=== PATIENT | female | born 1960 | race Caucasian/White ===

== ENCOUNTER 2016-12-22 08:00 | Outpatient (CLI) | payer MEDICAID, OTHER | END 2016-12-22 23:59 | DX: E03.9 Hypothyroidism, unspecified (principal) ==

== ENCOUNTER 2017-10-23 10:02 | Outpatient (CLI) | payer OTHER ==
[2017-10-23 17:46] LABS: BASOPHILS % (AUTO) 0.8 %; EOSINOPHILS # (AUTO) 0.2 10^3/uL (0.0-0.7); EOSINOPHILS % (AUTO) 4.1 %; HGB - HEMOGLOBIN 13.8 g/dL (12.0-16.0); LYMPHOCYTES # (AUTO) 1.4 10^3/uL (1.5-3.5); LYMPHOCYTES % (AUTO) 26.6 %; MEAN CORPUSCULAR HEMOGLOBIN 29.2 pg (27.0-31.0); MEAN CORPUSCULAR HGB CONC 32.5 g/dL (32.0-36.0); MEAN CORPUSCULAR VOLUME 89.9 fL (81.0-99.0); MEAN PLATELET VOLUME 8.8 fL (7.9-10.8); MONOCYTES # (AUTO) 0.3 10^3/uL (0.0-1.0); MONOCYTES % (AUTO) 6.1 %; NEUTROPHILS # (AUTO) 3.3 10^3/uL (1.5-6.6); NEUTROPHILS % (AUTO) 62.4 %; PLT - PLATELET COUNT 293 10^3/uL (130-450); RED BLOOD COUNT 4.74 10^6/uL (4.20-5.40); RED CELL DISTRIBUTION WIDTH 13.5 % (12.0-15.0); WHITE BLOOD COUNT 5.3 x10^3/uL (4.8-10.8)
[2017-10-23 18:17] LABS: ALBUMIN 4.2 g/dL (3.2-5.5); ALBUMIN/GLOBULIN RATIO 1.3 (1.0-2.2); ALKALINE PHOSPHATASE 57 IU/L (42-121); ALT ALANINE AMINOTRANSFERASE 24 IU/L (10-60); AST ASPARTATE AMINOTRANSFERASE 21 IU/L (10-42); BILIRUBIN,TOTAL 0.6 mg/dL (0.2-1.0); BUN - BLOOD UREA NITROGEN 14 mg/dL (6-20); CALCIUM 9.2 mg/dL (8.5-10.3); CARBON DIOXIDE - CO2 27 mmol/L (21-32); CHLORIDE 103 mmol/L (101-111); CREATININE 0.8 mg/dL (0.4-1.0); GFR - MDRD 75 (>89); GLUCOSE 121 mg/dL (70-100); SODIUM 138 mmol/L (135-145); TOTAL PROTEIN 7.4 g/dL (6.7-8.2)
== END 2017-10-23 10:03 | disposition home or self-care (01) ==
LOC: LAB.F 10:02
PROVIDERS: ATTEND Nurse Practitioner Family
DX: Z85.858 Personal history of malignant neoplasm of other endocrine glands (principal); E03.9 Hypothyroidism, unspecified
CPT/HCPCS: 36415; 80053; 84443; 85025

== ENCOUNTER 2017-10-29 07:11 | Outpatient (CLI) | payer OTHER ==
[2017-10-29] MEDS ORDERED: IOPAMIDOL-300 100 ML VIAL ONE (07:23)
[2017-10-29] MEDS ORDERED: IOPAMIDOL-300 100 ML VIAL IVP ONE (08:24)
[2017-10-29] MEDS ORDERED: ONDANSETRON ODT 4 MG TABLET ONE (11:42)
--- NOTE | 2017-10-29 11:43 | CT Report ---
EXAM: CT MAXILLOFACIAL WITH CONTRAST EXAM DATE: 10/29/2017 07:47 AM. CLINICAL HISTORY: Facial mass. COMPARISONS: Soft tissue neck CT with IV contrast 09/27/2014. TECHNIQUE: Thin-section axial images were acquired of the face after administration of intravenous co ntrast. Post-processing: Coronal and sagittal reformats. Other: 80 mL Isovue 300. IV contrast: Iodina anastasia. In accordance with CT protocol optimization, one or more of the following dose reduction techniques w ere utilized for this exam: automated exposure control, adjustment of mA and/or KV based on patient s ize, or use of iterative reconstructive technique. FINDINGS: A marker was placed on the skin of the right face corresponding to the location of the patient's symp toms. Immediately adjacent to the marker is a superficial subcutaneous rounded circumscribed nodule j ust under the skin. This nodule has a calcified center. No adjacent inflammatory or infiltrative thompson ges in the subcutaneous fat of the right face. This nodule now measures 15 x 13 mm transverse. Very s imilar findings were present previously but the nodule is now larger, previously measuring 10 x 12 mm transverse. Mild interval growth with otherwise stable overall morphology suggests a slowly growing benign or nonaggressive process. Again seen are findings of previous right neck dissection and total laryngectomy. Stable masslike fat density structure in the right neck as previously reported in detail. No other evidence for new or enlarging soft tissue mass or regional adenopathy. Stable atrophic verma es of the major salivary glands. No acute sinus or mastoid disease. Stable appearing orbits and intracranial structures. IMPRESSION: 1. Again seen is a superficial circumscribed centrally calcified subcutaneous nodule in the region of the right lateral cheek corresponding to the location of the skin marker. This is consistent with a benign or nonaggressive slowly growing process that was present previously. 2. No other evidence for new or acute abnormality of the soft tissues in this region. Stable surgical changes in the neck as described. [facility] Referring Provider Line: [phone] SITE ID: [id number]
== END 2017-10-29 07:12 | disposition home or self-care (01) ==
LOC: DI 07:11
PROVIDERS: ATTEND Nurse Practitioner Family
DX: R22.0 Localized swelling, mass and lump, head (principal)
CPT/HCPCS: 70487; Q0162; Q9967

== ENCOUNTER 2018-03-22 15:48 | Outpatient (CLI) | payer OTHER ==
--- NOTE | 2018-03-23 08:10 | XRAY Report ---
Procedure Date: 03/22/2018 Accession Number: [id number] / [id number] Procedure: XRS - Lumbar Spine 2 View CPT Code: FULL RESULT: EXAM: Lumbar Spine 2 View DATE: 03/22/2018 4:05 PM CLINICAL HISTORY: SCIATICA, ACUTE, LUMBAR SPINAL STENOSIS COMPARISON: MRI 07/25/2013 TECHNIQUE: 3 views. FINDINGS: Alignment: Normal. No spondylolisthesis or scoliosis. Bones: Five [id number] lumbar vertebral bodies are present. No fractures or bone lesions. Disks: Moderate degenerative disc disease. Facets: Moderate facet arthropathy. Sacroiliac Joints: Unremarkable. Soft Tissues: Normal bowel gas pattern. Calcified gallstones in the right upper quadrant. IMPRESSION: Moderate degenerative changes. Incidental cholelithiasis. [facility]
== END 2018-03-22 15:49 | disposition home or self-care (01) ==
LOC: DI.S 15:48
PROVIDERS: ATTEND Nurse Practitioner Family
DX: M47.896 Other spondylosis, lumbar region (principal); M51.36 Other intervertebral disc degeneration, lumbar region
CPT/HCPCS: 72100

== ENCOUNTER 2018-04-24 16:27 | Outpatient (CLI) | payer OTHER ==
--- NOTE | 2018-04-26 16:45 | MRI Report ---
Procedure Date: 04/24/2018 Accession Number: [id number] / [id number] Procedure: MRI - Lumbar Spine W/O CPT Code: FULL RESULT: EXAM: MRI LUMBAR SPINE WITHOUT CONTRAST EXAM DATE: 04/24/2018 05:09 PM. CLINICAL HISTORY: Lumbar disk herniation with radiculopathy. COMPARISON: None. TECHNIQUE: Sagittal T2 fast spin echo images were provided. No additional images were obtained as the patient was unable to complete the exam. FINDINGS: There is a grade 1 anterolisthesis of L4 on L5. The conus terminates at the inferior endplate level of T12. The images are degraded by extensive motion. The abdominal aorta is of normal caliber. There is a mild decrease in the height of the disk at L1-L2, L2-L3 and L3-L4. T10-T11: There is no significant disk bulge, central or foraminal stenosis. The facets are normal. T11-T12: There is no significant disk bulge, central or foraminal stenosis. The facets are normal. T12-L1: There is no significant disk bulge, central or foraminal stenosis. The facets are normal. L1-L2: There is no significant disk bulge, central or foraminal stenosis. The facets are normal. L2-L3: There is a small disk osteophyte complex producing a minimal central canal stenosis. There is mild to moderate left and mild right neural foraminal narrowing. There is no significant change at this level. L3-L4: There is a minimal disk osteophyte complex suggested abutting the sac producing a minimal central canal stenosis. There is mild neural foraminal narrowing bilaterally. L4-L5: There is a grade 1 anterolisthesis of L4 on L5. There is a minimal disk bulge abutting the sac producing a minimal central canal stenosis. There is mild to moderate left neural foraminal narrowing. L5-S1: There is a broad-based disk bulge abutting the sac. There is a superimposed right paracentral protrusion of the disk. There is a mild central canal stenosis. There is mild right neural foraminal narrowing. IMPRESSION: 1. Limited evaluation of the lumbar spine as the patient was only able to complete the sagittal T2-weighted images, which contain superimposed motion. Therefore the evaluation is quite limited. Repeat imaging may be useful and can be obtained once the patient is able to complete the exam. 2. Given the above limitations, there is a minimal central canal stenosis at L2-L3 from a small disk osteophyte complex. 3. There is a minimal central canal stenosis at L3-L4 from a minimal disk osteophyte complex. 4. There is a minimal central canal stenosis at L4-L5 from a minimal disk bulge. 5. There is again a broad-based disk bulge abutting the sac at L5-S1 with a superimposed right paracentral protrusion suggested, producing a mild central canal stenosis. Comment: The following findings are so common in adults without low back pain that while we report their presence, they must be interpreted with caution and in the context of the clinical situation. (Reference Nallelyk et al, Spine 2001) Prevalence of findings in patients without low back pain: Disk degeneration (any evidence): 92% Disk desiccation/T2 signal loss: 83% Disk height loss: 56% Disk bulge: 64% Disk protrusion: 32% Annular tear/high intensity zone: 38% [facility]
== END 2018-04-24 16:28 | disposition home or self-care (01) ==
LOC: DI 16:27
PROVIDERS: ATTEND Nurse Practitioner Family
DX: M51.16 Intervertebral disc disorders with radiculopathy, lumbar region (principal); M48.061 Spinal stenosis, lumbar region without neurogenic claudication; M25.78 Osteophyte, vertebrae
CPT/HCPCS: 72148

== ENCOUNTER 2019-07-28 17:35 | Emergency (ER) | payer MEDICAID, OTHER ==
[2019-07-28 17:52] VITALS: BP 138/75
[2019-07-28 18:11] LABS: BASOPHILS % (AUTO) 0.6 %; EOSINOPHILS # (AUTO) 0.2 10^3/uL (0.0-0.7); EOSINOPHILS % (AUTO) 2.7 %; HGB - HEMOGLOBIN 13.5 g/dL (12.0-16.0); LYMPHOCYTES # (AUTO) 2.1 10^3/uL (1.5-3.5); LYMPHOCYTES % (AUTO) 29.2 %; MEAN CORPUSCULAR HEMOGLOBIN 29.8 pg (27.0-31.0); MEAN CORPUSCULAR HGB CONC 33.1 g/dL (32.0-36.0); MEAN CORPUSCULAR VOLUME 90.1 fL (81.0-99.0); MEAN PLATELET VOLUME 9.6 fL (7.9-10.8); MONOCYTES # (AUTO) 0.5 10^3/uL (0.0-1.0); MONOCYTES % (AUTO) 6.4 %; NEUTROPHILS # (AUTO) 4.3 10^3/uL (1.5-6.6); NEUTROPHILS % (AUTO) 60.8 %; PLT - PLATELET COUNT 297 10^3/uL (130-450); RED BLOOD COUNT 4.53 10^6/uL (4.20-5.40); RED CELL DISTRIBUTION WIDTH 12.6 % (12.0-15.0)
--- NOTE | 2019-07-28 18:13 | ED Physician Documentation ---
PD HPI ABD PAIN - Stated complaint Stated Complaint: PRESSURE/TIGHTNESS IN CHEST - Chief complaint Chief Complaint: Cardiac - History obtained from History obtained from: Patient - History of Present Illness Timing - onset: Other (For the last 3 days she has had very mild nonradiating and nonexertional chest pressure. 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 HEENT: Tracheostomy, Other - Present Medications Home Medications: Ambulatory Orders Medication Instructions Recorded Confirmed Pilocarpine HCl 10 mg PO BID 09/14/16 09/14/16 buPROPion [Wellbutrin Sr] 200 mg PO BID tablet 09/17/16 Levothyroxine [Synthroid] 100 mcg PO QDAC 07/28/19 Venlafaxine ER [Effexor ER] 75 mg PO BID 07/28/19 - Allergies Allergies/Adverse Reactions: Allergies Allergy/AdvReac Type Severity Reaction Status Date / Time nortriptyline AdvReac Unknown Verified 07/28/19 17:50 triamcinolone acetonide * AdvReac Unknown Verified 07/28/19 17:50 [From [facility]] - Social History Does the pt smoke?: No Smoking Status: Never smoker Does the pt drink ETOH?: No Does the pt have substance abuse?: No - Immunizations Immunizations are current?: Yes - POLST Patient has POLST: No PD ED PE NORMAL - Vitals Vital signs reviewed: Yes - General General: Alert and oriented X 3, No acute distress - HEENT HEENT: Other (She has a tracheostomy in place) - Neck Neck: Supple, no meningeal sign, No bony TTP - Cardiac Cardiac: RRR, No murmur - Respiratory Respiratory: No respiratory distress, Clear bilaterally - Abdomen Abdomen: Non tender - Extremities Extremities: No edema, No calf tenderness / cord - Neuro Neuro: Alert and oriented X 3, Normal speech Results - Vitals Vitals: Vital Signs - 24 hr 07/28/19 07/28/19 17:39 17:52 Temperature 36.4 C L 36.9 C Heart Rate 66 67 Respiratory 20 18 Rate Blood Pressure 142/85 H 138/75 H O2 Saturation 99 100 Oxygen O2 Source Room air - EKG (time done) 1801 Rate: Rate (enter#) (66) Rhythm: NSR [place]: Normal Intervals: Normal [place] QRS: Normal Ischemia: Non specific changes. No: ST elevation c/w ischemia, ST elevation c/w repol, ST depression Computer interpretation: Agree with computer - Labs Labs: Laboratory Tests 07/28/19 07/28/19 07/28/19 18:05 18:05 18:05 WBC 7.0 RBC 4.53 Hgb 13.5 Hct 40.8 MCV 90.1 MCH 29.8 MCHC 33.1 RDW 12.6 Plt Count 297 MPV 9.6 Neut # (Auto) 4.3 Lymph # (Auto) 2.1 Nelson # (Auto) 0.5 Eos # (Auto) 0.2 Baso # (Auto) 0.0 Absolute Nucleated RBC 0.00 Nucleated RBC % 0.0 Sodium 140 Potassium 3.8 Chloride 101 Carbon Dioxide 29 Anion Gap 10.0 BUN 14 Creatinine 0.8 Estimated GFR (MDRD) 74 L Glucose 102 H Calcium 9.8 Total Bilirubin 0.6 AST 19 ALT 24 Alkaline Phosphatase 60 Troponin I High Sens < 2.3 L Total Protein 7.4 Albumin 4.5 Globulin 2.9 Albumin/Globulin Ratio 1.6 Lipase 36 - Rads (name of study) 2v chest Radiology: EMP read contemporaneously (NAD) PD MEDICAL DECISION MAKING - ED course ED course: 58-year-old woman with 3 days of very mild chest pressure, given the time course single troponin should be predictive. Departure - Departure Disposition: 01 Home, Self Care Clinical Impression: Atypical chest pain Condition: Good Record reviewed to determine appropriate education?: Yes Instructions: ED Chest Pain Atypical Unkn Cause Comments: Call your doctor to arrange a follow-up appointment, make the next available appointment. In the interim, return anytime if worse or if new symptoms develop. Your blood pressure was elevated today on check into the emergency department. This does not mean that you have hypertension, it is a common phenomenon to come to the emergency department and have elevated blood pressure. I recommend that you see your primary care physician within the week to have it rechecked when you are feeling better.
[2019-07-28 18:29] LABS: ALBUMIN 4.5 g/dL (3.2-5.5); ALBUMIN/GLOBULIN RATIO 1.6 (1.0-2.2); BILIRUBIN,TOTAL 0.6 mg/dL (0.2-1.0); CALCIUM 9.8 mg/dL (8.5-10.3); CREATININE 0.8 mg/dL (0.4-1.0); TOTAL PROTEIN 7.4 g/dL (6.7-8.2)
--- NOTE | 2019-07-28 19:05 | XRAY Report ---
Reason: chest pressure Procedure Date: 07/28/2019 Accession Number: [id number] / [id number] Procedure: XR - Chest 2 View X-Ray CPT Code: 63664 Final Report FULL RESULT: EXAM: CHEST RADIOGRAPHY EXAM DATE: 07/28/2019 06:41 PM. CLINICAL HISTORY: Chest pressure. COMPARISON: 05/06/2011 6:22 AM. TECHNIQUE: 2 views. FINDINGS: Lungs/Pleura: No focal opacities evident. No pleural effusion. No pneumothorax. Normal volumes. Mediastinum: Heart size is normal. Aorta is mildly tortuous. Other: Degenerative changes of the thoracic spine. Surgical clips are seen in the right axilla. IMPRESSION: 1. No acute disease in the chest. [facility]
== END 2019-07-28 19:16 | disposition home or self-care (01) ==
LOC: ED 17:35
DX: R07.89 Other chest pain (principal); R03.0 Elevated blood-pressure reading, without diagnosis of hypertension; Z93.0 Tracheostomy status
CPT/HCPCS: 36415; 71046; 80053; 83690; 84484; 85025; 93005; 99283; 99284

== ENCOUNTER 2019-10-16 15:58 | Emergency (ER) | payer MEDICAID ==
[2019-10-16 16:06] VITALS: BP 128/70
--- NOTE | 2019-10-16 16:27 | ED Physician Documentation ---
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 She has had this 15 times previously and she is usually responded to oral antibiotics. She has been hospitalized once when she failed as an outpatient on azithromycin that was given for a different illness. She does not recall the names of antibiotic she is been on previously for this infection. Review of Systems Constitutional: reports: Fatigue. denies: Fever, Chills Eyes: denies: Decreased vision Ears: denies: Ear pain Nose: denies: Rhinorrhea / runny nose, Congestion Throat: denies: Sore throat Cardiac: denies: Chest pain / pressure, Palpitations Respiratory: denies: Dyspnea, Cough GI: denies: Abdominal Pain, Nausea, Vomiting : denies: Dysuria, Frequency Skin: reports: Rash Musculoskeletal: reports: Neck pain. 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 HEENT: Tracheostomy, Other - Present Medications Home Medications: Ambulatory Orders Medication Instructions Recorded Confirmed Pilocarpine HCl 10 mg PO BID 09/14/16 09/14/16 buPROPion [Wellbutrin Sr] 200 mg PO BID tablet 09/17/16 Levothyroxine [Synthroid] 100 mcg PO QDAC 07/28/19 Venlafaxine ER [Effexor ER] 75 mg PO BID 07/28/19 Sulfamethoxazole/Trimethoprim 1 each PO BID #14 tablet 10/16/19 [Sulfamethoxazole-Tmp Ds Tablet] - Allergies Allergies/Adverse Reactions: Allergies Allergy/AdvReac Type Severity Reaction Status Date / Time nortriptyline AdvReac Unknown Verified 10/16/19 16:03 triamcinolone acetonide * AdvReac Unknown Verified 10/16/19 16:03 [facility] - Social History Does the pt smoke?: No Smoking Status: Never smoker Does the pt drink ETOH?: No Does the pt have substance abuse?: No - Immunizations Immunizations are current?: Yes - POLST Patient has POLST: No PD ED PE NORMAL - Vitals Vital signs reviewed: Yes (low grade fever) - General General: Alert and oriented X 3, No acute distress, Well developed/nourished - HEENT HEENT: Atraumatic, PERRL, EOMI - Neck Neck: Other (There has been extensive reconstructive surgery to the neck she does have a button that she can press to redirect the air from her tracheostomy into a flap or talking. She talks quite well. 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, No motor deficit, No sensory deficit, Normal speech Eye Opening: Spontaneous Motor: Obeys Commands Verbal: Oriented GCS Score: 15 - Psych Psych: Normal mood, Normal affect Results - Vitals Vitals: Vital Signs - 24 hr 10/16/19 16:03 Temperature 37.7 C H Heart Rate 93 Respiratory 18 Rate Blood Pressure 128/70 O2 Saturation 100 Oxygen O2 Source Room air PD MEDICAL DECISION MAKING - ED course Complexity details: reviewed old records, re-evaluated patient, considered differential, d/w patient ED course: 58-year-old female with anterior chest wall cellulitis has had this a number of times previously and is usually responded to oral antibiotics. Today she is started on Septra and we have given her instructions for cellulitis. She is instructed to return to the hospital for failure of outpatient management. Departure - Departure Disposition: 01 Home, Self Care Clinical Impression: Cellulitis of chest wall Condition: Stable Instructions: ED Infec Skin Cellulitis Follow-Up: Denita Whatley ARNP [Primary Care Provider] - Prescriptions: Sulfamethoxazole/Trimethoprim [Sulfamethoxazole-Tmp Ds Tablet] 1 each PO BID #14 tablet
[2019-10-16] MEDS ORDERED: SULFAMETH/TRIMETH DS 800/160 MG TABLET PO STA (16:28)
== END 2019-10-16 16:36 | disposition home or self-care (01) ==
LOC: ED 15:58
DX: L03.313 Cellulitis of chest wall (principal); Z98.890 Other specified postprocedural states; Z93.0 Tracheostomy status
CPT/HCPCS: 99282; 99283; A9270

== ENCOUNTER 2020-03-27 08:38 | Outpatient (CLI) | payer MEDICAID ==
[2020-03-27 14:55] LABS: BASOPHILS % (AUTO) 0.7 %; EOSINOPHILS # (AUTO) 0.2 10^3/uL (0.0-0.7); EOSINOPHILS % (AUTO) 2.8 %; LYMPHOCYTES # (AUTO) 1.5 10^3/uL (1.5-3.5); LYMPHOCYTES % (AUTO) 27.3 %; MEAN CORPUSCULAR HGB CONC 31.6 g/dL (32.0-36.0); MEAN PLATELET VOLUME 10.3 fL (7.9-10.8); MONOCYTES # (AUTO) 0.4 10^3/uL (0.0-1.0); MONOCYTES % (AUTO) 6.5 %; NEUTROPHILS # (AUTO) 3.4 10^3/uL (1.5-6.6); NEUTROPHILS % (AUTO) 62.3 %; PLT - PLATELET COUNT 325 10^3/uL (130-450); RED BLOOD COUNT 4.48 10^6/uL (4.20-5.40); RED CELL DISTRIBUTION WIDTH 12.9 % (12.0-15.0); WHITE BLOOD COUNT 5.4 x10^3/uL (4.8-10.8)
[2020-03-27 15:16] LABS: ALBUMIN/GLOBULIN RATIO 1.4 (1.0-2.2); ALKALINE PHOSPHATASE 56 IU/L (42-121); ALT ALANINE AMINOTRANSFERASE 27 IU/L (10-60); AST ASPARTATE AMINOTRANSFERASE 25 IU/L (10-42); BILIRUBIN,TOTAL 0.6 mg/dL (0.2-1.0); BUN - BLOOD UREA NITROGEN 14 mg/dL (6-20); CARBON DIOXIDE - CO2 28 mmol/L (21-32); CHLORIDE 105 mmol/L (101-111); CHOLESTEROL 274 mg/dL; CREATININE 0.7 mg/dL (0.4-1.0); GLUCOSE 125 mg/dL (70-100); HDL CHOLESTEROL 46 mg/dL; LDL CHOLESTEROL,CALCULATED 185 mg/dL; SODIUM 138 mmol/L (135-145); TOTAL PROTEIN 6.8 g/dL (6.7-8.2); VLDL CHOLESTEROL 43 mg/dL
== END 2020-03-27 08:39 | disposition home or self-care (01) ==
LOC: LAB.S 08:38
PROVIDERS: ATTEND Registered Nurse
DX: E03.9 Hypothyroidism, unspecified (principal); E78.5 Hyperlipidemia, unspecified; Z85.858 Personal history of malignant neoplasm of other endocrine glands; F32.9 Major depressive disorder, single episode, unspecified
CPT/HCPCS: 36415; 80053; 80061; 83721; 84443; 85025

== ENCOUNTER 2020-08-20 12:42 | Outpatient (CLI) | payer MEDICAID ==
[2020-08-20 16:58] LABS: CALCIUM 9.5 mg/dL (8.5-10.3); CREATININE 0.7 mg/dL (0.4-1.0)
[2020-08-20 20:20] LABS: HEMOGLOBIN A1c% 5.9 % (4.27-6.07)
== END 2020-08-20 12:43 | disposition home or self-care (01) ==
LOC: LAB.S 12:42
PROVIDERS: ATTEND Registered Nurse
DX: R73.01 Impaired fasting glucose (principal); Z12.11 Encounter for screening for malignant neoplasm of colon
CPT/HCPCS: 36415; 80048; 83036; 84478

== ENCOUNTER 2021-01-01 10:37 | Outpatient (CLI) | payer MEDICAID ==
[2021-01-01 15:13] LABS: CALCIUM 9.3 mg/dL (8.5-10.3); CREATININE 0.6 mg/dL (0.4-1.0); POTASSIUM 3.9 mmol/L (3.5-5.0)
[2021-01-01 19:51] LABS: ESTIMATED AVERAGE GLUCOSE 120 mg/dL (70-100); HEMOGLOBIN A1c% 5.8 % (4.27-6.07)
== END 2021-01-01 10:38 | disposition home or self-care (01) ==
LOC: LAB.S 10:37
PROVIDERS: ATTEND Registered Nurse
DX: R73.01 Impaired fasting glucose (principal)
CPT/HCPCS: 36415; 80048; 83036

== ENCOUNTER 2021-02-01 15:38 | Outpatient (CLI) | payer MEDICAID | END 2021-02-01 15:39 | disposition home or self-care (01) | LOC: COV 15:38 | PROVIDERS: ATTEND Registered Nurse | DX: Z00.00 Encounter for general adult medical examination without abnormal findings (principal); Z20.822 Contact with and (suspected) exposure to COVID-19 ==

== ENCOUNTER 2021-07-05 10:07 | Outpatient (CLI) | payer MEDICAID ==
[2021-07-05 15:12] LABS: BASOPHILS % (AUTO) 0.7 %; EOSINOPHILS # (AUTO) 0.2 10^3/uL (0.0-0.7); HCT - HEMATOCRIT 42.5 % (37.0-47.0); HGB - HEMOGLOBIN 13.6 g/dL (12.0-16.0); LYMPHOCYTES # (AUTO) 1.5 10^3/uL (1.5-3.5); LYMPHOCYTES % (AUTO) 27.8 %; MEAN CORPUSCULAR HEMOGLOBIN 29.8 pg (27.0-31.0); MEAN CORPUSCULAR VOLUME 93.2 fL (81.0-99.0); MEAN PLATELET VOLUME 9.7 fL (7.9-10.8); MONOCYTES # (AUTO) 0.4 10^3/uL (0.0-1.0); MONOCYTES % (AUTO) 7.6 %; NEUTROPHILS # (AUTO) 3.3 10^3/uL (1.5-6.6); NEUTROPHILS % (AUTO) 60.5 %; PLT - PLATELET COUNT 290 10^3/uL (130-450); RED BLOOD COUNT 4.56 10^6/uL (4.20-5.40); RED CELL DISTRIBUTION WIDTH 13.7 % (12.0-15.0); WHITE BLOOD COUNT 5.4 x10^3/uL (4.8-10.8)
[2021-07-05 15:41] LABS: ALBUMIN 4.3 g/dL (3.2-5.5); ALBUMIN/GLOBULIN RATIO 1.5 (1.0-2.2); ALKALINE PHOSPHATASE 47 IU/L (42-121); ALT ALANINE AMINOTRANSFERASE 20 IU/L (10-60); AST ASPARTATE AMINOTRANSFERASE 17 IU/L (10-42); BILIRUBIN,TOTAL 0.5 mg/dL (0.2-1.0); BUN - BLOOD UREA NITROGEN 17 mg/dL (6-20); CALCIUM 9.4 mg/dL (8.5-10.3); CARBON DIOXIDE - CO2 26 mmol/L (21-32); CHLORIDE 103 mmol/L (101-111); CHOLESTEROL 266 mg/dL; CREATININE 0.6 mg/dL (0.4-1.0); GFR - MDRD 103 (>89); GLUCOSE 120 mg/dL (70-100); HDL CHOLESTEROL 67 mg/dL; LDL CHOLESTEROL,CALCULATED 183 mg/dL; LDL/HDL RATIO 2.7 (<4.4); POTASSIUM 4.5 mmol/L (3.5-5.0); SODIUM 140 mmol/L (135-145); TOTAL PROTEIN 7.1 g/dL (6.7-8.2); TRIGLYCERIDES 81 mg/dL; VLDL CHOLESTEROL 16 mg/dL
[2021-07-05 15:43] LABS: THYROID STIMULATING HORMONE 3.07 uIU/mL (0.34-5.60)
[2021-07-05 19:35] LABS: ESTIMATED AVERAGE GLUCOSE 123 mg/dL (70-100); HEMOGLOBIN A1c% 5.9 % (4.27-6.07)
== END 2021-07-05 10:08 | disposition home or self-care (01) ==
LOC: LAB.S 10:07
PROVIDERS: ATTEND Registered Nurse
DX: E03.9 Hypothyroidism, unspecified (principal); E78.5 Hyperlipidemia, unspecified; R73.01 Impaired fasting glucose
CPT/HCPCS: 36415; 80053; 80061; 83036; 83721; 84443; 85025

== ENCOUNTER 2021-11-05 08:00 | Outpatient (CLI) | payer MEDICAID | END 2021-11-05 23:59 | LOC: LAB.S 08:00 | PROVIDERS: ATTEND Physician Assistant | DX: J06.9 Acute upper respiratory infection, unspecified (principal); R53.83 Other fatigue; Z20.822 Contact with and (suspected) exposure to COVID-19 ==